=== PATIENT | male | born 1955 | race Caucasian/White ===

== ENCOUNTER 2021-01-30 14:17 | Outpatient (CLI) | payer OTHER ==
[2021-01-30] MEDS ORDERED: TEST100V2 INJ (14:44)
[2021-01-30] MEDS ORDERED: OXYC-380 PO (14:44)
[2021-01-30] MEDS ORDERED: FLUT10.6 INH (14:44)
[2021-01-30] MEDS ORDERED: LEVO300T4 PO (15:00)
[2021-01-30 15:23] LABS: MICROSCOPIC NOT IND
[2021-01-30 15:25] LABS: BASOPHILS % (AUTO) 1 % (0-1); EOSINOPHILS % (AUTO) 3 % (1-7); LYMPHOCYTES % (AUTO) 5 % (22-44); MEAN CORPUSCULAR HEMOGLOBIN 33.9 pg (27.5-34.5); MEAN CORPUSCULAR HGB CONC 34.2 g/dL (33.2-36.2); MONOCYTES % (AUTO) 6 % (2-9); NEUTROPHILS % (AUTO) 85 % (42-75); PLATELET COUNT 275 x10^3/uL (130-400); RED BLOOD COUNT 4.66 x10^6/uL (4.38-5.82); RED CELL DISTRIBUTION WIDTH 13.8 % (9.4-14.8)
[2021-01-30 15:27] LABS: MD NO
[2021-01-30 15:32] LABS: ANION GAP 5 mmol/L (5-15); CHLORIDE 101 mmol/L (98-107); CREATININE 1.24 mg/dL (0.7-1.3)
[2021-01-30 15:35] LABS: PROTHROMBIN TIME 10.7 Seconds (9.6-11.5)
== END 2021-01-30 23:59 | disposition home or self-care (01) ==
LOC: STAR 14:17
PROVIDERS: ATTEND Neurological Surgery
DX: Z01.818 Encounter for other preprocedural examination (principal); M48.061 Spinal stenosis, lumbar region without neurogenic claudication; M47.814 Spondylosis without myelopathy or radiculopathy, thoracic region
CPT/HCPCS: 36415; 71046; 80048; 81003; 85025; 85610; 85730; 93005